=== PATIENT | female | born 1995 | race Caucasian/White ===

== ENCOUNTER 2017-08-17 20:13 | Inpatient (IN) | payer BC ==
[2017-08-17 22:25] LABS: ABS Basophils 0 10^3/ul (0-0.2); ABS Eosinophils 0.1 10^3/ul (0-0.6); ABS Lymphocytes 3.2 10^3/ul (1.0-4.8); ABS Monocytes 0.4 10^3/ul (0-0.8); ABS Neutrophils 5.6 10^3/ul (1.5-7.7); ABS Nucleated RBC 0 10^3/ul; Eosinophil % 0.7 % (0-6); Hematocrit 44 % (35-47); Hemoglobin 15.1 g/dl (12.0-16.0); Lymphocyte % 34.1 % (25-47); Mean Corpuscular HGB Conc 35 g/dl (31-36); Mean Corpuscular Hemoglobin 31 pg (27-31); Mean Corpuscular Volume 89 fL (80-97); Mean Platelet Volume 8.5 um3 (7.4-10.4); Nucleated Red Blood Cells % 0.1; Platelet Count 353 10^3/ul (150-450); Red Blood Count 4.91 10^6/ul (4.0-5.4); Red Cell Distribution Width 13 % (10.5-15); White Blood Count 9.4 10^3/ul (3.5-10.8)
[2017-08-17 22:36] LABS: EGFR Non-African American 65.4 (>60)
[2017-08-18] MEDS ORDERED: Mouth Piece, Nicotine* 1 EACH CARTRIDGE INH PRN (01:42)
[2017-08-18] MEDS: Nicotine Inhaler* 10 MG AMP INH PRN ×2 (02:03→20:28)
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
[2017-08-18 09:15] LABS: Urine Appearance Cloudy; Urine Blood Negative (Negative); Urine Color Yellow; Urine Ketones Negative (Negative); Urine Protein 1+(30 mg/dL) (Negative); Urine Specific Gravity 1.025 (1.010-1.030); Urine Urobilinogen Negative (Negative)
--- NOTE | 2017-08-18 11:37 | PN ---
MHU: Group Therapy Note - Service Type Service Type: [id number] Group Psychotherapy - Cognitive Behavioral Group Therapy ( CBT):Patient was attentive and participatory in CBT programming this morning, and remained in good behavioral control. Patient expressed positive insights regarding relevant treatment interventions and goals.
[2017-08-18] MEDS ORDERED: Ondansetron ODT TAB* 4 MG PO PRN (16:06)
[2017-08-18] MEDS: ARIPiprazole TAB* 5 MG PO SCH (20:27)
[2017-08-18] MEDS ORDERED: cloNIDine TAB* 0.1 MG PO SCH (21:00)
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
[2017-08-19] MEDS ORDERED: BuPROPion XL* 150 MG TAB.XL PO SCH (09:00)
[2017-08-19] MEDS: Nicotine Inhaler* 10 MG AMP INH PRN ×2 (10:05→20:20)
--- NOTE | 2017-08-19 11:28 | PN ---
MHU: Group Therapy Note - Service Type Service Type: [id number] Group Psychotherapy - Cognitive Behavioral Group Therapy ( CBT):Patient was attentive and participatory in CBT programming this morning, and remained in good behavioral control. Patient expressed positive insights regarding relevant treatment interventions and goals.
--- NOTE | 2017-08-19 15:53 | PN ---
Subjective - Subjective Date of Service: 08/19/17 Service Type: [id number] Hosp care 15 min low complexity Subjective: Susan reports feeling well on the unit but has concerns about starting three medications at the same time. The rationale was explained to her, but the decision was made to pare back the medications to one, Abilify 5 mg. Susan states she is feeling safe on the unit, but would not be okay if she had to go to work and take care of herself. Objective - Appearance Appearance: Healthy Appearing, Thin Framed Dysmorphic Features: No Hygiene: Normal Grooming: Fairly Well Kept - Behavior Psychomotor Activities: Normal Exhibits Abnormal Movement: No - Attitude and Relatedness Attitude and Relatedness: Cooperative Eye Contact: Good - Speech Quality: Unpressured Latencies: Normal - Mood Patient's Decription of Mood: "Okay" - Affect Observed Affect: Tense Affect Consistent with: Dysphoria - Thought Process Patient's Thought Process: Coherent Thought Content: No Passive Wish, No Suicidal Planning, No Homicidal Ideation, No Paranoid Ideation - Sensorium Experiencing Hallucinations: No, Sensorium is Clear Type of Hallucinations: Visual: No, Auditory: No, Command: No - Level of Consciousness Level of Consciousness: Alert Orientation: Yes Intact, Yes Orientated to Time, Yes Orientated to Place, Yes Orientated to Person - Impulse Control Impulse Control: Intact - Insight and Judgement Insight and Judgement: Fair - Group Participation Particating in Group Activities: Yes - Medication Management Medication Management Adherence: Yes - Additional Observations Comments: Susan's attitude could at times be reported as superficially cooperative. Nevertheless, she becomes more cooperative when her behavior is discussed. Her affect remains shallow and it is difficult to determine her safety upon discharge. Assessment - Assessment Merits Inpatient Hospitalization: For Immediate Safety Inpatient DSM-V Dx: F31.9 Clinical Impression: Susan is a 21-year-old female who comes in brought by her mother due to suicidal ideation and an inability to care for herself in the outpatient setting. She is doing well here, but lacks confidence in her ability to maintain safety in the community. Abilify is started as Susan has difficulty sticking to a medication regimen without prompting. Plan - Plan Treatment Plan: Name: STEFANY FRANKLIN Birthdate: 1995 [id number] Continued Medication Management: Different Medication Medications: Current Medications Aripiprazole (Abilify Tab*) 5 mg PO BEDTIME SCOTT Last Admin: 08/18/17 20:27 Dose: 5 mg Bupropion HCl (Wellbutrin Xl *) 150 mg PO DAILY SCOTT PRN Reason: Protocol Last Admin: 08/19/17 10:02 Dose: 150 mg Clonidine HCl (Catapres Tab*) 0.1 mg PO BEDTIME SCOTT Last Admin: 08/18/17 20:27 Dose: 0.1 mg Device (Nicotine Mouth Piece*) 1 each INH .USE WITH NICOTROL PRN PRN Reason: CRAVING Last Admin: 08/18/17 02:02 Dose: 1 each Nicotine (Nicotine Inhaler*) 10 mg INH Q2H PRN PRN Reason: CRAVING Last Admin: 08/19/17 10:05 Dose: 10 mg Ondansetron HCl (Zofran Odt Tab*) 4 mg PO Q6H PRN PRN Reason: NAUSEA - Discharge Plan Discharge Plan: Outpatient Follow Up Additional Comments: Susan will take Abilify 5 mg and we will determine how well she tolerates it. The far-reaching plan is to determine if she can receive Abilify Maintena in the outpatient setting.
--- NOTE | 2017-08-19 16:12 | PN ---
MHU: Group Therapy Note - Service Type Service Type: [id number] Group Psychotherapy - Medication Education Group: Patient was attentive and participatory in group, and remained in good behavioral control. Patient expressed positive insights regarding relevant treatment interventions. Patient stated understanding of material discussed and had appropriate questions.
[2017-08-19] MEDS: ARIPiprazole TAB* 5 MG PO SCH (20:20)
[2017-08-20] MEDS: Nicotine Inhaler* 10 MG AMP INH PRN (15:36)
--- NOTE | 2017-08-20 16:33 | PN ---
Subjective - Subjective Date of Service: 08/20/17 Service Type: [id number] Hosp care 15 min low complexity Subjective: Susan reports being happy and anxious at the same time. She is not ready to leave the unit at this time as she finds that being here is more comforting and a place where she can feel safe. She is not certain that she will be safe when she leaves. Objective - Appearance Appearance: Healthy Appearing Dysmorphic Features: No Hygiene: Normal Grooming: Fairly Well Kept - Behavior Psychomotor Activities: Normal Exhibits Abnormal Movement: No - Attitude and Relatedness Attitude and Relatedness: Well Related Eye Contact: Good - Speech Quality: Unpressured Latencies: Normal Quantity: Appropriate - Mood Patient's Decription of Mood: "Fine" - Affect Observed Affect: Fair Affect Consistent with: Euthymia - Thought Process Patient's Thought Process: Coherent Thought Content: No Passive Wish, No Suicidal Planning, No Homicidal Ideation, No Paranoid Ideation - Sensorium Experiencing Hallucinations: No, Sensorium is Clear Type of Hallucinations: Visual: No, Auditory: No, Command: No - Level of Consciousness Level of Consciousness: Alert Orientation: Yes Intact, Yes Orientated to Time, Yes Orientated to Place, Yes Orientated to Person - Impulse Control Impulse Control: Impaired - Insight and Judgement Insight and Judgement: Fair - Group Participation Particating in Group Activities: Yes - Medication Management Medication Management Adherence: Yes - Additional Observations Comments: Ssuan's attitude could at times be reported as superficially cooperative. Nevertheless, she becomes more cooperative when her behavior is discussed. Her affect remains shallow and it is difficult to determine her safety upon discharge. Her insight into relationships is not excellent. She tends to interact with males in a way that is interpreted by staff to be flirtatious. It has been explained to her that this is neither acceptable nor maxwell. Assessment - Assessment Merits Inpatient Hospitalization: For Immediate Safety Inpatient DSM-V Dx: F31.9 Clinical Impression: Susan is a 21-year-old female who comes in brought by her mother due to suicidal ideation and an inability to care for herself in the outpatient setting. She is doing well here, but lacks confidence in her ability to maintain safety in the community. Abilify is started as Susan has difficulty sticking to a medication regimen without prompting and we may be able to use an injectable version of the medication. Susan continues doing well and participating in groups. She is adhering to her medication schedule and is gaining insight. Plan - Plan Treatment Plan: Name: STEFANY FRANKLIN Birthdate: 1995 [id number] Medications: Current Medications Aripiprazole (Abilify Tab*) 5 mg PO BEDTIME SCOTT Last Admin: 08/19/17 20:20 Dose: 5 mg Device (Nicotine Mouth Piece*) 1 each INH .USE WITH NICOTROL PRN PRN Reason: CRAVING Last Admin: 08/18/17 02:02 Dose: 1 each Nicotine (Nicotine Inhaler*) 10 mg INH Q2H PRN PRN Reason: CRAVING Last Admin: 08/20/17 15:36 Dose: 10 mg Ondansetron HCl (Zofran Odt Tab*) 4 mg PO Q6H PRN PRN Reason: NAUSEA - Discharge Plan Additional Comments: Susan will take Abilify 5 mg. The far-reaching plan is to determine if she can receive Abilify Maintena in the outpatient setting. She is tolerating the medication well. She is sleeping and eating well. We look forward to a Wednesday discharge.
[2017-08-20] MEDS: ARIPiprazole TAB* 5 MG PO SCH (20:39)
[2017-08-21] MEDS: Nicotine Inhaler* 10 MG AMP INH PRN ×2 (14:23→20:18)
[2017-08-21] MEDS: ARIPiprazole TAB* 5 MG PO SCH (20:17)
[2017-08-22] MEDS: Nicotine Inhaler* 10 MG AMP INH PRN ×2 (09:32→20:11)
--- NOTE | 2017-08-22 15:32 | PN ---
Subjective - Subjective Date of Service: 08/22/17 Subjective: Mini described patterns of feeling euthymic upon waking until 2-3PM when she restarts feeling depressed again for no apparent reason. She denies adverse effects from newly started Abilify. She avidly denies SI or urges for sib and she contracts for safety. Objective - Appearance Appearance: Healthy Appearing Dysmorphic Features: No Hygiene: Normal Grooming: Well Kept - Behavior Psychomotor Activities: Normal Exhibits Abnormal Movement: No - Attitude and Relatedness Attitude and Relatedness: Superficially Cooperative Eye Contact: Fair - Speech Quality: Unpressured Latencies: Normal Quantity: Appropriate - Mood Patient's Decription of Mood: "Good" - Affect Observed Affect: Fair Affect Consistent with: Euthymia - Thought Process Patient's Thought Process: Coherent, Goal Directed Thought Content: No Passive Wish, No Suicidal Planning, No Homicidal Ideation, No Paranoid Ideation - Sensorium Experiencing Hallucinations: No, Sensorium is Clear - Level of Consciousness Level of Consciousness: Alert Orientation: Yes Intact - Impulse Control Impulse Control: Intact - Insight and Judgement Insight and Judgement: Poor - Group Participation Particating in Group Activities: Yes - Medication Management Medication Management Adherence: Yes Assessment - Assessment Merits Inpatient Hospitalization: [facility] Improvements, For Discharge Planning Inpatient DSM-V Dx: F31.9 Clinical Impression: She is stabilizing in this structured setting with lower distress level, improving mood, absence of SI. She is tolerating new trial of Abilify. Plan - Plan Treatment Plan: Name: STEFANY FRANKLIN Birthdate: 1995 [id number] Medications: Current Medications Aripiprazole (Abilify Tab*) 5 mg PO BEDTIME SCOTT Last Admin: 08/21/17 20:17 Dose: 5 mg Device (Nicotine Mouth Piece*) 1 each INH .USE WITH NICOTROL PRN PRN Reason: CRAVING Last Admin: 08/18/17 02:02 Dose: 1 each Nicotine (Nicotine Inhaler*) 10 mg INH Q2H PRN PRN Reason: CRAVING Last Admin: 08/22/17 09:32 Dose: 10 mg Ondansetron HCl (Zofran Odt Tab*) 4 mg PO Q6H PRN PRN Reason: NAUSEA - Discharge Plan Discharge Plan: Outpatient Follow Up Outpatient Program: [facility]
[2017-08-22] MEDS: ARIPiprazole TAB* 5 MG PO SCH (20:11)
[2017-08-23 07:35] VITALS: BP 110/58
--- NOTE | 2017-08-23 11:50 | PN ---
MHU: Group Therapy Note - Service Type Service Type: [id number] Group Psychotherapy - Cognitive Behavioral Group Therapy ( CBT):Patient was attentive and participatory in CBT programming this morning, and remained in good behavioral control. Patient expressed positive insights regarding relevant treatment interventions and goals.
== END 2017-08-23 16:30 | disposition home or self-care (01) | DRG 753 ==
LOC: ED 20:13 → BSU 08-18 00:35
PROVIDERS: ADMIT Psychiatry & Neurology Psychiatry; ATTEND Psychiatry & Neurology Psychiatry
DX: F31.9 Bipolar disorder, unspecified (principal); R45.851 Suicidal ideations; Z81.8 Family history of other mental and behavioral disorders
CPT/HCPCS: 36415; 80053; 80061; 80307; 80320; 80329; 81003; 81015; 83036; 84443; 84702; 85025; 87086; 90853; 99222; 99231; 99285; A9270-GY; G0480